=== PATIENT | female | born 1935 ===

== ENCOUNTER → 2020-07-16 | Outpatient (CLI) | payer MEDICARE, BC ==
[~2020-07-16] MED LIST: ASPI325; ASPI81CH; Aspir 8181 MG; CALCAVITD PO; CALPHO600; CHOL10002 PO; CLOP75; Calcium + Vita1 EACH PO; FISH1000 PO; LOSA50 PO; METPRE4DP PO; NIAC500ER; PRAV20 PO; PRED1SU BOTHEYES; VIT1CAPS12
== END | disposition home or self-care (01) ==
LOC: LAB SHORT 10:00 → LAB 10:00
DX: A49.9 Bacterial infection, unspecified (principal)
CPT/HCPCS: 87070; 87077; 87147; 87186; 87205